=== PATIENT | female | born 1990 | race Hispanic/Latino ===

== ENCOUNTER 2024-07-10 19:55 | Inpatient (IN) | payer BC ==
[2024-07-10] MEDS ORDERED: HYDROcodone/Acetaminophen 5/325 mg Tablet PO PRN ×2 (20:11)
[2024-07-10] MEDS ORDERED: Ondansetron PF 4 MG/2 ML Vial IVP PRN (20:11)
[2024-07-10] MEDS ORDERED: hydrALAZINE 20 MG/ML VIAL SLOW IVP PRN (20:11)
[2024-07-10] MEDS ORDERED: Promethazine HCl 25 MG/ML VIAL IM PRN (20:11)
[2024-07-10] MEDS ORDERED: Oxytocin 30 units/NS 500 ML 500 ML IV SCH (20:11)
[2024-07-10 20:42] VITALS: BMI 37.5
[2024-07-10] MEDS: Lactated Ringer's 1,000 ML IV SCH (21:31)
[2024-07-10] MEDS: Misoprostol 100 MCG TAB VAG SCH (21:48)
[2024-07-10 22:11] LABS: Hematocrit 37.9 % (34.9-44.5); Hemoglobin 12.9 g/dL (12.0-15.5); Mean Corpuscular Volume 91.1 fL (81.6-98.3); Mean Platelet Volume 11.4 fL (7.4-10.4); Platelet Count 247 10x3/uL (150-450); RBC Distribution Width 13.7 % (11.5-14.5); Red Blood Cell (RBC) Count 4.16 10x6/uL (3.90-5.03); White Blood Cell (WBC) Count 9.9 10x3/uL (3.5-10.5)
[2024-07-11] MEDS ORDERED: Misoprostol 100 MCG TAB VAG SCH
[2024-07-11 00:30] LABS: Syphilis Antibody Nonreactive (Nonreactive); Syphilis Antibody Index 0.08 S/CO (<1.00 Non-Reactive)
[2024-07-11 00:41] LABS: HBsAg Index 0.24 S/CO (0-0.99); Hep B Surf Ag - L&D Non-Reactive S/CO (NonReactive)
[2024-07-11] MEDS: fentaNYL 50 mcg/mL 1 mL Vial SLOW IVP PRN (01:45)
[2024-07-11] MEDS: Lidocaine 1% (PF) 30 ML VIAL SC PRN (07:36)
[2024-07-11] MEDS: Oxytocin 30 units/NS 500 ML 500 ML IV SCH (07:38)
[2024-07-11] MEDS: Methylergonovine 0.2 MG/ML VIAL ONE (07:42)
[2024-07-11] MEDS: Ibuprofen 800 MG TAB PO PRN (08:05)
[2024-07-11] MEDS ORDERED: Lanolin Ointment 7 GM TUBE TOP PRN (14:10)
[2024-07-11] MEDS ORDERED: Ondansetron PF 4 MG/2 ML Vial IVP PRN (14:10)
[2024-07-11] MEDS ORDERED: diphenhydrAMINE 25 MG CAP PO PRN (14:10)
[2024-07-11] MEDS ORDERED: Milk Of Magnesia 30 ML UDCUP PO PRN (14:10)
[2024-07-11] MEDS ORDERED: HYDROcodone/Acetaminophen 5/325 mg Tablet PO PRN ×2 (14:10)
[2024-07-11] MEDS ORDERED: Boostrix 0.5 ML (Tdap) VIAL (>/=7 yrs of age) IM ONE (14:10)
[2024-07-11] MEDS ORDERED: Oxytocin 30 units/NS 500 ML 500 ML IV SCH (14:10)
[2024-07-11] MEDS ORDERED: hydrALAZINE 20 MG/ML VIAL SLOW IVP PRN (14:10)
[2024-07-11] MEDS ORDERED: Bisacodyl 10 MG SUPP PR PRN (14:10)
[2024-07-11] MEDS: Ibuprofen 800 MG TAB PO SCH (15:55)
[2024-07-11] MEDS: Benzocaine-Menthol 82.5 ML CAN TOP PRN (15:55)
[2024-07-11] MEDS: Prenatal Vitamin 1 TAB PO SCH (16:26)
[2024-07-11] MEDS: Docusate 100 MG CAP PO SCH (16:26)
[2024-07-11] MEDS: Ferrous Sulfate 325 MG TAB PO SCH (17:28)
[2024-07-12] MEDS: Prenatal Vitamin 1 TAB PO SCH (08:07)
[2024-07-12] MEDS: Docusate 100 MG CAP PO SCH (08:07)
[2024-07-12] MEDS: Preparation H Ointment 28 GM TUBE PR PRN (08:11)
[2024-07-12] MEDS ORDERED: Witch Hazel 100 PAD JAR TOP PRN (12:27)
[2024-07-13 08:41] VITALS: BP 118/66; TEMP 97.7
[2024-07-13] MEDS ORDERED: Ibuprofen 800 MG TAB PO SCH (14:00)
== END 2024-07-13 11:55 | disposition home or self-care (01) | DRG 806 ==
LOC: CSHLD 19:55 → CSHPP 07-11 11:26
PROVIDERS: ADMIT Obstetrics & Gynecology; ATTEND Obstetrics & Gynecology
PROC: 10E0XZZ Delivery of Products of Conception, External Approach (ICD-10-PCS; principal; 2024-07-11)
PROC: 0KQM0ZZ Repair Perineum Muscle, Open Approach (ICD-10-PCS; 2024-07-11)
PROC: 3E0DXGC Introduction of Other Therapeutic Substance into Mouth and Pharynx, External Approach (ICD-10-PCS; 2024-07-11)
DX: O42.02 Full-term premature rupture of membranes, onset of labor within 24 hours of rupture (principal); O72.1 Other immediate postpartum hemorrhage; Z37.0 Single live birth; Z3A.39 39 weeks gestation of pregnancy; O70.1 Second degree perineal laceration during delivery
CPT/HCPCS: 36415; 51701; 85027; 86780; 86850; 86900; 86901; 87340; J2210; J2590; J3010; J7120